=== PATIENT | female | born 1955 | race Caucasian/White ===

== ENCOUNTER → 2019-11-18 09:28 | Outpatient (CLI) | payer MEDICARE, SELFPAY ==
[2019-11-18 13:05] LABS: Thyroid Stim Hormone (TSH) 2.16 uIU/mL (0.358-3.74)
[2019-11-19 20:39] LABS: Anti-Thyroglobulin AB < 1.0 IU/mL (0.0-0.9); Thyroglobulin, Serum Qt. 6.9 ng/mL (1.5-38.5); Thyroid Peroxidase AB < 9 IU/mL (0-34)
== END ==
PROVIDERS: PCP Family Medicine; Referring Provider Otolaryngology; Visit Provider Otolaryngology
DX: E03.9 Hypothyroidism, unspecified (principal)
CPT/HCPCS: 36415; 84432; 84443; 86376; 86800

== ENCOUNTER → 2019-12-15 12:15 | Outpatient (CLI) | payer MEDICARE, SELFPAY ==
[2019-12-15 11:30] VITALS: BMI 26.6
[2019-12-15 13:00] LABS: Absolute Lymphocyte Count 1.86 X10^3/uL (0.83-4.51); Absolute Neutrophil Count 4.3 X10^3/uL (2.0-7.7); Basophil# 0.04 X10^3/uL; Basophil% 0.6 % (0-1); Eosinophil# 0.12 X10^3/uL; Eosinophils% 1.7 % (0-5); Hematocrit 46.3 % (37-47); Lymphocyte # 1.86 X10^3/ul (4.0); Mean Corp Hgb Conc 32.4 g/dL (32-36); Mean Corpuscular Hgb 32.3 pg (27.0-32.0); Mean Corpuscular Volume 99.6 fL (81-99); Mean Platelet Vol. 9.8 fl (6.2-12.0); Monocyte# 0.54 X10^3/uL; Monocyte% 7.8 % (0-10); NRBC Flagged by Analyzer 0 % (0-5); Neutrophil # 4.33 X10^3/uL (2.7-7.7); Neutrophil % 62.8 % (47-70); Platelet Count 283 K/mm3 (150-450); RBC Distribution Width CV 13.7 % (11.6-14.6); RBC Distribution Width SD 50.2 fl (35.1-43.9); Red Blood Count 4.65 M/mm3 (4.2-5.4); White Blood Count 6.9 K/mm3 (4.4-11.0)
[2019-12-15 13:39] LABS: Anion Gap 7 (5-15); BUN 15 mg/dL (7-18); BUN/Creat Ratio 20.5 RATIO (10-20); Calcium,Total 9.3 mg/dL (8.5-10.1); Chloride 105 mmol/L (98-107); Creatinine, Serum 0.73 mg/dL (0.55-1.02); EST Glomerular Filtration Rate 85 mL/min (>60); Est Glom Filt Rate - Afr Amer 103 mL/min (>60); Glucose 88 mg/dL (74-106); Magnesium 2.6 mg/dL (1.6-2.6); Potassium 3.9 mmol/L (3.5-5.1); Sodium Level 141 mmol/L (136-145); Thyroid Stim Hormone (TSH) 2.98 uIU/mL (0.358-3.74)
== END ==
PROVIDERS: PCP Family Medicine; Referring Provider Internal Medicine Cardiovascular Disease; Visit Provider Internal Medicine Cardiovascular Disease
DX: I49.9 Cardiac arrhythmia, unspecified (principal); R00.2 Palpitations
CPT/HCPCS: 36415; 80048; 83735; 84443; 85025

== ENCOUNTER → 2019-12-22 12:49 | Outpatient (CLI) | payer MEDICARE, SELFPAY ==
[2019-12-15 11:30] VITALS: BMI 26.6
--- NOTE | 2019-12-22 12:50 | ECHOCS_ITS ---
Reason For Study: Afib, Aflutter Procedure This was a 2D Doppler, Color Flow transthoracic echocardiogram. Contrast injection was performed. Exam performed in department. Left Ventricle Normal LV size. The estimated ejection fraction is 37 %. Stage 1 diastolic dysfunction. There is mild to moderate global hypokinesis of the left ventricle. Right Ventricle Normal RV size. Normal systolic function. Atria Normal left atrium. Normal right atrium. Bubble contrast study negative for right to left interatrial shunt. Mitral Valve Normal mitral valve. Tricuspid Valve Normal tricuspid valve. Aortic Valve Normal aortic valve. Trisinus/trileaflet aortic valve. Trivial eccentric aortic valve insufficiency. Pulmonic Valve Normal pulmonic valve. Great Vessels Normal aortic root. Pericardium/Pleural No pericardial effusion. Medication Diluted definity 4ml given slow IV push to enhance endocardial definition. MMode/2D Measurements & Calculations LVIDd: 4.5 cm IVSd: 0.90 cm Ao root diam: 2.8 cm LVIDs: 4.0 cm LVPWd: 0.73 cm RVDd: 3.1 cm FS: 12.1 % LAV(MOD-bp): 56.8 ml LVAd ap4: 28.3 cm2 SV(MOD-sp4): 40.2 ml LAV(MOD-bp) Indexed: 34.3 ml/m2 EDV(MOD-sp4): 88.2 ml LAV(MOD-sp2): 51.6 ml EDV(sp4-el): 89.8 ml LAV(MOD-sp4): 51.4 ml LVAs ap4: 18.4 cm2 ESV(MOD-sp4): 48.0 ml ESV(sp4-el): 45.1 ml EF(MOD-sp4): 45.5 % EF(sp4-el): 49.8 % SV(sp4-el): 44.7 ml LA A4 area: 20.0 cm2 LA dimension(2D): 3.8 cm RA A4 area: 15.7 cm2 Doppler Measurements & Calculations MV E max nelson: 37.7 cm/sec Lat Peak E' Nelson: 5.4 cm/sec Med Peak E' Nelson: 4.6 cm/sec MV A max nelson: 41.5 cm/sec E/E' lat: 7.0 E/E' med: 8.2 MV E/A: 0.91 Ao V2 max: 92.7 cm/sec LV V1 max: 72.1 cm/sec PA V2 max: 72.5 cm/sec Ao max P.4 mmHg LV V1 max P.1 mmHg Ao V2 mean: 72.6 cm/sec Ao mean P.2 mmHg Ao V2 VTI: 15.1 cm TR max nelson: 227.7 cm/sec TR max P.7 mmHg Interpretation Summary Normal LV size. The estimated ejection fraction is 37 %. Trivial eccentric aortic valve insufficiency. Stage 1 diastolic dysfunction. Contrast injection was performed. Ordering Physician: Kobi Ashby Referring Physician: Maverick Galloway Performed By: Marika Luna, CRISTINA, RVT
== END ==
PROVIDERS: PCP Family Medicine; Referring Provider Internal Medicine Cardiovascular Disease; Visit Provider Internal Medicine Cardiovascular Disease
DX: I49.9 Cardiac arrhythmia, unspecified (principal); I35.1 Nonrheumatic aortic (valve) insufficiency
CPT/HCPCS: 93225; 93226; 93306; Q9957; A4216; C8929

== ENCOUNTER → 2019-12-29 16:04 | Outpatient (CLI) | payer MEDICARE, SELFPAY ==
[2019-12-29 14:50] VITALS: BMI 26.3
--- NOTE | 2019-12-29 16:10 | RAD_ITS ---
STUDY: X-RAY CHEST REASON FOR EXAM: Female, 64 years old. PRE-OP CHEST X-RAY FOR PACEMAKER PLACEMENT. HX OF CHRONIC IRREGULAR HEART RATE AND HYPERTENSION. TECHNIQUE: Frontal and lateral views of the chest. COMPARISON: None. FINDINGS: The lungs are clear and expanded. There is no demonstrated pleural abnormality. Normal size heart. Normal mediastinum and odalys. Normal visualized pulmonary arteries. Normal visualized aortic arch and descending thoracic aorta. Normal visualized thoracic spine. Normal visualized ribs, clavicles, and shoulders. There is no demonstrated abnormality of the visualized soft tissue structures of the upper abdomen. RAD/Chest PA and Lateral IMPRESSION: Normal x-ray examination of the chest. Electronically Signed: Clarence Gama MD at 19:50 EDT , Service support ,
== END ==
PROVIDERS: PCP Family Medicine; Referring Provider Internal Medicine Cardiovascular Disease; Visit Provider Internal Medicine Cardiovascular Disease
DX: I45.89 Other specified conduction disorders (principal); I42.8 Other cardiomyopathies; I44.2 Atrioventricular block, complete
CPT/HCPCS: 71046

== ENCOUNTER 2020-01-24 14:14 | Observation (INO) | payer MEDICARE, SELFPAY ==
[2019-12-29 14:50] VITALS: BMI 26.3
[2019-12-29 16:27] LABS: Bacteria 0 SEEN /hpf (None Seen); Mucous, Urine 0 SEEN /hpf (<or=2+); Red Blood Cells-Urine 0 SEEN /hpf (0-5); Squamous Epithelial Cells - UA 0 SEEN /hpf (5-10); White Blood Cells 0 SEEN /hpf (0-5)
[2019-12-29 16:47] LABS: Color, Urine Yellow (Yellow); Glucose, Dipstick Normal (Normal); Ketone-Dipstick 5 mg/dl (Negative); Leukocyte Esterase-Dipstick 25 /ul (Negative); Nitrite-Dipstick Negative (Negative); Occult Blood-Urine Negative /ul (Negative); Protein-Dipstick Negative (Negative); Urine Bilirubin Dipstick Negative (Negative); Urine Clarity Clear (Clear); Urine Urobilinogen Normal (Normal)
[2019-12-29 16:54] LABS: Hematocrit 46.5 % (37-47); Hemoglobin 15.2 g/dL (12.0-15.0); Mean Corp Hgb Conc 32.7 g/dL (32-36); Mean Corpuscular Hgb 32.1 pg (27.0-32.0); Mean Corpuscular Volume 98.3 fL (81-99); Mean Platelet Vol. 10.1 fl (6.2-12.0); Platelet Count 279 K/mm3 (150-450); RBC Distribution Width CV 12.6 % (11.6-14.6); RBC Distribution Width SD 45.6 fl (35.1-43.9); Red Blood Count 4.73 M/mm3 (4.2-5.4); White Blood Count 9.5 K/mm3 (4.4-11.0)
[2019-12-29 17:11] LABS: Anion Gap 7 (5-15); BUN 11 mg/dL (7-18); Calcium,Total 9.3 mg/dL (8.5-10.1); Chloride 103 mmol/L (98-107); Creatinine, Serum 0.74 mg/dL (0.55-1.02); EST Glomerular Filtration Rate 84 mL/min (>60); Est Glom Filt Rate - Afr Amer 102 mL/min (>60); Glucose 87 mg/dL (74-106); Potassium 3.5 mmol/L (3.5-5.1); Sodium Level 136 mmol/L (136-145)
[2020-01-21 07:39] VITALS: BMI 26.3
[2020-01-24] VITALS (11 sets, daily range): BP systolic 91–140; BP diastolic 50–83; PULSE 63–72; RESP 16–18; TEMP 36.7–36.8; O2SAT 95–100
[2020-01-24] MEDS: Cefazolin 2 GM in 0.9% Normal Saline 100 ML IV (12:30)
--- NOTE | 2020-01-24 14:11 | CL.IE_ITS ---
Patient: RAEGAN GARCÍA Study Date: 01/24/2020 Performing: Kobi Ashby MD : 1955 Age: 64 Gender: female PROCEDURES PERFORMED [id number] PACER INSERT+DUAL LEADS INDICATIONS Atrioventricular (AV) block PROCEDURE DETAILS The patient was brought to the Catheterization Lab in the postabsorptive nonsedated state. [facility] was obtained prior to the procedure. Local anesthetic was given subcutaneously to the le ft subclavian region with Lidocaine 2%. Access was achieved and a guidewire was advanced into the lef t subclavian vein. Incision was made to the left subclavicular area. A peel-away sheath was inserted into the left subclavian vein. PPM ventricular lead was inserted / positioned to right ventricular ap ex. PPM ventricular lead testing performed. PPM ventricular lead testing performed. A peel-away sheat h was inserted into the left subclavian vein. PPM atrial lead was inserted / positioned to the right atrial appendage. PPM atrial lead testing performed. The Atrial lead sutured in place with 2-0 Silk. The Ventricular PM lead sutured in place with 2-0 Silk. Device pocket was irrigated with antibiotic. PPM generator was attached to the lead(s) and inserted into the pocket. PPM generator was then interrogated by the senior net programmer. Subcutaneous closure was completed with 3-0 Vicryl. Skin closure was completed with 4-0 Vicryl. Steri-strips applied to Lt chest area. The patient tolerated the pro cedure well. Estimated Blood Loss: < 10 mls IMPLANTED / EX-PLANTED DEVICES IMPLANTED DEVICE(S): PPM Atrial lead - Electronics Test Engineer: [employer], Model # 7840 , Serial # [id number] PPM Ventricular lead - Electronics Test Engineer: [employer], Model # 7841 , Serial # [id number] PPM Generator - Electronics Test Engineer: Issue, Model # [employer] MRI DR Pacemaker L111 , Serial # [id number] DEVICE PARAMETERS ATRIAL LEAD PARAMETERS: P wave- 2.1 (mV) Current- 2.1 (mA) threshold- 1.2 (V) impedence- 597 (OHMS) VENTRICULAR LEAD PARAMETERS: R wave- 11.8 (mV) Current- 0.8 (mA) threshold- 0.5 (V) impedence- 710 (OHMS) DEVICE PARAMETERS: Mode- DDD Lower rate- 60 Upper rate- 130 CONCLUSIONS / RECOMMENDATIONS Device Conclusions: Successful implantation of a dual chamber pacemaker Device Recommendations: Follow up with Primary Care Physician PROCEDURE MEDICATIONS Fentanyl 50 mcg IV Versed 1 mg IV Versed 1 mg IV Fentanyl 25 mcg IV Versed 1 mg IV Fentanyl 25 mcg IV Fentanyl 25 mcg IV Antibiotic given in appropriate timeframe. Ancef 2 Gm IV @ 01/24/2020 12:33:14 Signed By Kobi Ashby MD On 01/24/2020 14:11:24 Kobi Ashby MD
[2020-01-24] MEDS: 0.9% Normal Saline 1,000 ML 100 ML IV (19:13)
[2020-01-25 00:51] VITALS: PULSE 60
[2020-01-25 03:21] VITALS: BP 145/70; PULSE 62; RESP 17; TEMP 36.5; O2SAT 100
--- NOTE | 2020-01-25 05:55 | RAD_ITS ---
STUDY: X-RAY CHEST REASON FOR EXAM: Female, 64 years old. Post permanent ICD/Pacemaker TECHNIQUE: Frontal and lateral views of the chest. COMPARISON: 12/29/2019. FINDINGS: The patient is status post atrioventricular pacemaker placement via left subclavian access. Wires are grossly intact. There is mild left basilar atelectasis. There are no confluent pulmonary infiltrates. There is no demonstrated pleural abnormality. There is borderline cardiomegaly. Normal mediastinum and odalys. Normal visualized aortic arch and descending thoracic aorta. There are no demonstrated acute fractures or destructive bone lesions. There is no demonstrated abnormality of the visualized soft tissue structures of the upper abdomen. RAD/Chest PA and Lateral IMPRESSION: Atrioventricular pacemaker. Borderline heart size. No evidence for acute cardiopulmonary pathology. Electronically Signed: Steven Baron MD at 5:55 EDT , Service support ,
[2020-01-25] MEDS: Levothyroxine 25 MCG TABLET PO (06:21)
[2020-01-25] MEDS: 0.9% Normal Saline 1,000 ML 100 ML IV (06:24)
[2020-01-25 07:36] VITALS: PULSE 60
--- NOTE | 2020-01-25 07:43 | PN.CARD_ITS ---
Subjectve: Patient seen and evaluated. Appears to be doing much better this morning. Objective: Vital Signs Temp Pulse Resp BP Pulse Ox 97.7 F L 62 17 145/70 H 100 01/25/20 03:21 01/25/20 03:21 01/25/20 03:21 01/25/20 03:21 01/25/20 03:21 Oxygen Delivery Method Room Air Weight: 144 lb Body Mass Index (BMI) 26.3 Intake and Output for Last 24 Hours 01/23/20 01/24/20 01/25/20 23:59 23:59 23:59 Intake Total 590 / 590 1120 / 1120 Output Total 650 / 650 Balance 590 / 590 470 / 470 General: Awake, Alert, Oriented x 3 HEENT: PERRL, EOMI, Sclera Non Icteric Neck: Supple, Good ROM, No Lymph Node Enlargement Lungs: Clear to auscultation Cardiovascular: Regular Rhythm, Normal S1, Normal S2, No Murmurs, No Rubs, No Gallops Vascular: No Carotid Bruits, Normal Femoral Pulses, Normal Radial Pulses, Normal Dorsalis Pedal Pulse, Normal Posterior Tibial Pulses Abdomen: Bowel Sounds Present, Soft, Non Tender, No HSM, No Organomegaly Extremities: No Cyanosis, No Clubbing, No edema Musculoskeletal: No Erythema Skin: No Rashes Lymphatic: No Lymph Node Enlargement Neurological: No Focal Motor or Sensory Deficit Psych/Mental Status: Appropriate Rhythm: EKG: ECHO: Stress Test: Cardiac Cath: PCI: CT Surgery: Holter monitor: EPS: PPM: CXR: Chest CT Scan: Medical Necessity - Tobacco Use Smoking Status: Never smoker Assessment/Plan 1. 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 * Chest x-ray does not demonstrate any significant abnormalities. * Pacer check is pending at this time. However if noted to be normal will discharge for outpatient follow-up. * * Thank you for allowing me to participate in the care of your patient. Please don't hesitate to call if any issues arise.
[2020-01-25 08:05] VITALS: PULSE 60
[2020-01-25 08:08] VITALS: BP 123/89; PULSE 60; RESP 12; TEMP 36.9; O2SAT 96
[2020-01-25] MEDS: Losartan Potassium 25 MG Tablet PO (09:42)
--- NOTE | 2020-01-25 10:19 | DCINST_ITS ---
Discharge Diet: No Restrictions Discharge Activity: May Not Drive Call your doctor if your incision/area has: Continuous Slow Oozing, Sudden Increased Bleeding, Increased Pain/ Swelling, Increased Redness, Foul Smelling Discharge, Swelling at the incision site Call your doctor if you observe: Fever of 101 or Higher, Shortness of breath, Dizziness, Fainting spells, Swelling in the ankles, Chest pain, Prolonged hiccoughing, Increased palpitations (irregular heartbeat) Suture Line Care: Avoid Pulling/Pushing, Avoid Pinching/Bending Cleanse incision/area with: Do not get Incision Wet, Keep Dressing Clean & Dry Additional Dressing/Incision Instructions:: When dressing is removed, wash and dry incision. Keep covered with a light bandage if it is rubbing against your clothing. Do not cover the incision with an airtight bandage. Change the bandage daily. Do not remove steri strips. The strips will fall off on their own. Additional Instructions: Signs and Symptoms to Report to Your Doctor at Once - call your doctor's office or Doctor's Registry ([phone]) Call 911 or go to the nearest Emergency Department if you feel you need urgent care. *Infection (fever, increased redness or swelling at the incision site, drainage from the incision increased pain at the pacemaker site) *Shortness of breath *Dizziness *Fainting spells *Swelling in the ankles *Chest pain *Prolonged hiccoughing *Increased palpitaitons (irregular heartbeat) Medications: Take your pain medication as directed. Refer to your discharge instruction sheet for a list of medications you are to take. Allergies/Adverse Reactions: Allergies lisinopril Adverse Reaction (Verified 01/12/20 11:22) cough Medications to take at Discharge levothyroxine 25 mcg capsule 25 mcg PO DAILY 12/13/19 losartan 25 mg tablet 25 mg PO DAILY #30 tab 01/12/20 Primary Care Physician: Maverick Galloway MD [Primary Care Provider] - Test Results: Test results from this visit will be discussed in further detail at your follow- up appointment, if applicable. Please Follow Up With: [facility] 01/31/20 @ 1 PM Proposed Discharge Date: 01/25/20
[2020-01-25 10:20] VITALS: BP 123/89; PULSE 60; RESP 12; TEMP 36.9; O2SAT 96
== END 2020-01-25 10:20 | disposition home or self-care (01) ==
LOC: PCU 14:57
PROVIDERS: Admitting Provider Internal Medicine Cardiovascular Disease; PCP Family Medicine; Referring Provider Internal Medicine Cardiovascular Disease; Visit Provider Internal Medicine Cardiovascular Disease
DX: I45.89 Other specified conduction disorders (principal); I42.8 Other cardiomyopathies; R03.0 Elevated blood-pressure reading, without diagnosis of hypertension; E03.9 Hypothyroidism, unspecified; I44.2 Atrioventricular block, complete; Z86.73 Personal history of transient ischemic attack (TIA), and cerebral infarction without residual deficits; E78.5 Hyperlipidemia, unspecified; K58.9 Irritable bowel syndrome, unspecified; Z23 Encounter for immunization; Z79.899 Other long term (current) drug therapy
CPT/HCPCS: 33208; 36415; 71046; 80048; 81001; 85027; 96360; 96361; 99152; 99153; 99218; G0008; J7030; J7040; J7050; 90686; C1725; C1874; C1887; C1894; G0378; G0379

== ENCOUNTER → 2020-06-30 09:43 | Outpatient (CLI) | payer MEDICARE, SELFPAY ==
[2020-04-04 10:01] VITALS: BMI 25.4
--- NOTE | 2020-06-30 09:47 | ECHOD_ITS ---
Reason For Study: ARRHYTHMIA Procedure This was a 2D Doppler, Color Flow transthoracic echocardiogram. Exam performed with PTsitting upright due to sciatica pain. Exam performed in department. Left Ventricle Normal LV size. The estimated ejection fraction is 45 %. Stage 2 diastolic dysfunction. No regional wall motion abnormalities noted. Right Ventricle Normal RV size. ICD or pacer leads identified within the right ventricle. Normal systolic function. Atria The left atrium is mildly enlarged. Normal right atrium. Mitral Valve Normal mitral valve. Tricuspid Valve Normal tricuspid valve. Mild (1+) tricuspid valve insufficiency. Pulmonary artery systolic pressure is 36 mmHg. Aortic Valve Normal aortic valve. Trisinus/trileaflet aortic valve. Pulmonic Valve Normal pulmonic valve. Great Vessels Normal aortic root. The pulmonary artery is normal size. Normal inferior vena cava. Pericardium/Pleural No pericardial effusion. MMode/2D Measurements & Calculations LVIDd: 4.9 cm IVSd: 0.73 cm Ao root diam: 3.0 cm LVIDs: 3.8 cm LVPWd: 0.81 cm RVDd: 4.0 cm FS: 22.6 % LAV(MOD-bp): 86.7 ml LVAd ap4: 27.0 cm2 SV(MOD-sp4): 34.4 ml LAV(MOD-bp) Indexed: 52.9 ml/m2 EDV(MOD-sp4): 74.5 ml LAV(MOD-sp2): 84.2 ml EDV(sp4-el): 78.5 ml LAV(MOD-sp4): 84.5 ml LVAs ap4: 18.3 cm2 ESV(MOD-sp4): 40.0 ml ESV(sp4-el): 41.7 ml EF(MOD-sp4): 46.2 % EF(sp4-el): 46.9 % SV(sp4-el): 36.8 ml LA A4 area: 25.2 cm2 LA dimension(2D): 2.9 cm RA A4 area: 16.7 cm2 Time Measurements MV dec time: 0.18 sec Doppler Measurements & Calculations MV E max nelson: 68.6 cm/sec Lat Peak E' Nelson: 13.7 cm/sec Med Peak E' Nelson: 7.6 cm/sec MV A max nelson: 44.9 cm/sec E/E' lat: 5.0 E/E' med: 9.1 MV E/A: 1.5 Ao V2 max: 112.3 cm/sec LV V1 max: 82.5 cm/sec PA V2 max: 100.7 cm/sec Ao max P.0 mmHg LV V1 max P.7 mmHg TR max nelson: 285.6 cm/sec TR max P.9 mmHg ECHO/Echo Complete Interpretation Summary Normal LV size. The estimated ejection fraction is 45 %. No regional wall motion abnormalities noted. The left atrium is mildly enlarged. Stage 2 diastolic dysfunction. Pulmonary artery systolic pressure is 36 mmHg. Compared to previous study, the left ventricular systolic function has improved .. Ordering Physician: Kobi Ashby Referring Physician: Maverick Galloway Performed By: Marissa Salcido RDCS, RVT
== END ==
PROVIDERS: PCP Family Medicine; Referring Provider Internal Medicine Cardiovascular Disease; Visit Provider Internal Medicine Cardiovascular Disease
DX: I44.2 Atrioventricular block, complete (principal)
CPT/HCPCS: 93306

== ENCOUNTER → 2020-07-10 06:02 | Outpatient (CLI) | payer MEDICARE, SELFPAY ==
[2020-07-03 14:07] VITALS: BMI 26.3
--- NOTE | 2020-07-10 13:33 | STRESSREP_ITS ---
Stress Test Report Pharmacologic myocardial perfusion stress test. 65-year-old lady with a history of nonischemic cardiomyopathy. Medications losartan, carvedilol. Stress protocol: Resting EKG demonstrates normal sinus rhythm with a rate of 85 bpm and left bundle branch block is noted resting blood pressure is 152/92 mmHg. 0.4 mg of regadenoson was infused per usual protocol followed by rapid intravenous saline flush injection continuous EKG monitoring was performed. The maximum heart rate attained was 113 bpm which was 73% of max impacted heart rate the maximum workload was 1 metabolic equivalent. At rest there were no ST or T wave changes noted to suggest abnormal flow reserve and at peak infusion nonspecific changes were noted which were consistent with left bundle branch block and pacing patent. The peak blood pressure 152/92 mmHg. Myocardial perfusion protocol. 11.4 mCi of technetium 99m sestamibi was injected at rest. 0.4 mg of re gadenoson was infused per usual protocol. At peak infusion 32.6 mCi of technetium 99m sestamibi was injected stress and rest images were reconstructed and compared in the short axis vertical long horizontal long axis. Gated images were also obtained Perfusion SPECT analysis: Review of the stress images demonstrate uniform uptake of tracer noted in all areas of the myocardium. The resting images demonstrate a similar pattern. No obvious areas of reversibility are noted to suggest ischemia. There is GI attenuation artifact noted. No obvious ischemia is noted and no previous infarct is present. Gated SPECT analysis: The gated ejection fraction is 34%. Apical pacing activity present. Conclusion: Cardiomyopathy present. No ischemia noted.
== END ==
PROVIDERS: PCP Family Medicine; Referring Provider Physician Assistant Medical; Visit Provider Physician Assistant Medical
DX: I42.9 Cardiomyopathy, unspecified (principal); I51.89 Other ill-defined heart diseases
CPT/HCPCS: 78452; 93017; A9500; A4216; J2785

== ENCOUNTER → 2021-02-12 13:49 | Outpatient (CLI) | payer MEDICARE, SELFPAY ==
--- NOTE | 2021-02-12 13:56 | ECHOD_ITS ---
Version 2 Reason For Study: Afib/Flutter Procedure This was a 2D Doppler, Color Flow transthoracic echocardiogram. Echo done with patient supine due to severe sciatica pain. Respiration dependent, best apical images to assess LVF taken immediately before subcostals. Exam performed in department. Left Ventricle Normal LV size. Left ventricular systolic function is normal. The estimated ejection fraction is 53 %. Unable to assess diastolic dysfunction due to arrhythmia. No regional wall motion abnormalities noted. Right Ventricle Normal RV size. ICD or pacer leads identified within the right ventricle. Normal systolic function. Atria The left atrium is mildly enlarged. Normal right atrium. Mitral Valve Normal mitral valve. Tricuspid Valve Normal tricuspid valve. Mild (1+) tricuspid valve insufficiency. Pulmonary artery systolic pressure is 37 mmHg. Pulmonic Valve Normal pulmonic valve. Great Vessels Normal aortic root. The pulmonary artery is normal size. Normal inferior vena cava. Pericardium/Pleural No pericardial effusion. MMode/2D Measurements & Calculations LVIDd: 4.6 cm IVSd: 0.87 cm LA dimension: 3.6 cm LVIDs: 3.4 cm LVPWd: 0.80 cm FS: 25.5 % LAV(MOD-bp): 76.1 ml LA A4 area: 23.2 cm2 RA A4 area: 15.9 cm2 LAV(MOD-bp) Indexed: 45.7 ml/m2 LAV(MOD-sp2): 62.6 ml LAV(MOD-sp4): 73.9 ml Doppler Measurements & Calculations MV E max evita: 82.3 cm/sec Ao V2 max: 107.8 cm/sec LV V1 max: 63.4 cm/sec Ao max P.7 mmHg LV V1 max P.6 mmHg PA V2 max: 92.5 cm/sec TR max evita: 288.5 cm/sec TR max P.3 mmHg ECHO/Echo Complete Interpretation Summary Normal LV size. Left ventricular systolic function is normal. The estimated ejection fraction is 53 %. Unable to assess diastolic dysfunction due to arrhythmia. Pulmonary artery systolic pressure is 37 mmHg. Ordering Physician: Kobi Ashby Referring Physician: Maverick Galloway Performed By: Jesse Fuller RCS
== END ==
PROVIDERS: PCP Family Medicine; Referring Provider Internal Medicine Cardiovascular Disease; Visit Provider Internal Medicine Cardiovascular Disease
DX: I48.91 Unspecified atrial fibrillation (principal); Z86.73 Personal history of transient ischemic attack (TIA), and cerebral infarction without residual deficits
CPT/HCPCS: 93306

== ENCOUNTER 2021-06-07 08:11 | Outpatient (CLI) | payer MEDICARE, SELFPAY ==
[2021-06-07 08:53] LABS: Absolute Lymphocyte Count 2.45 X10^3/uL (0.83-4.51); Absolute Neutrophil Count 3.2 X10^3/uL (2.0-7.7); Basophil# 0.07 X10^3/uL; Basophil% 1.1 % (0-1); Eosinophil# 0.15 X10^3/uL; Eosinophils% 2.4 % (0-5); Hematocrit 42.1 % (37-47); Hemoglobin 13.5 g/dL (12.0-15.0); Lymphocyte # 2.45 X10^3/ul (0.83-4.51); Lymphocyte % 38.4 % (19-41); Mean Corp Hgb Conc 32.1 g/dL (32-36); Mean Corpuscular Hgb 30.9 pg (27.0-32.0); Mean Corpuscular Volume 96.3 fL (81-99); Mean Platelet Vol. 9.2 fl (6.2-12.0); Monocyte# 0.47 X10^3/uL; Monocyte% 7.4 % (0-10); NRBC Flagged by Analyzer 0 % (0-5); Neutrophil # 3.23 X10^3/uL (2.7-7.7); Neutrophil % 50.5 % (47-70); Platelet Count 264 K/mm3 (150-450); RBC Distribution Width CV 14.1 % (11.6-14.6); RBC Distribution Width SD 50.6 fl (35.1-43.9); Red Blood Count 4.37 M/mm3 (4.2-5.4); White Blood Count 6.4 K/mm3 (4.4-11.0)
[2021-06-07 09:29] LABS: AST(SGOT) 14 U/L (15-37); Alanine Aminotransfer ALT/SGPT 19 U/L (13-56); Albumin, Serum 4.2 g/dL (3.2-5.0); Alkaline Phosphatase 60 U/L (45-117); Anion Gap 3 (5-15); BUN 16 mg/dL (7-18); BUN/Creat Ratio 19.5 RATIO (10-20); Bilirubin, Direct 0.28 mg/dL (0.00-0.30); Calcium,Total 9.1 mg/dL (8.5-10.1); Chloride 101 mmol/L (98-107); Cholesterol 207 mg/dL (200); Creatinine, Serum 0.82 mg/dL (0.55-1.02); EST Glomerular Filtration Rate 74 mL/min (>60); Est Glom Filt Rate - Afr Amer 89 mL/min (>60); Globulin 3.7 g/dL (2.2-4.2); Glucose 87 mg/dL (74-106); High Density Lipoprotein 57 mg/dL; Magnesium 2.3 mg/dL (1.6-2.6); Potassium 4.2 mmol/L (3.5-5.1); Protein, Total 7.9 g/dL (6.4-8.2); Sodium Level 136 mmol/L (136-145); Thyroid Stim Hormone (TSH) 2.87 uIU/mL (0.358-3.74); Triglycerides 59 mg/dL; Very Low Density Lipoprotein 12 mg/dL (5-40)
== END 2021-06-07 23:59 | disposition home or self-care (01) ==
LOC: LAB 08:13
PROVIDERS: PCP Family Medicine; Referring Provider Internal Medicine Cardiovascular Disease; Visit Provider Internal Medicine Cardiovascular Disease
DX: I48.92 Unspecified atrial flutter (principal); I42.8 Other cardiomyopathies; I48.0 Paroxysmal atrial fibrillation; I44.2 Atrioventricular block, complete; I45.89 Other specified conduction disorders; I10 Essential (primary) hypertension; E78.5 Hyperlipidemia, unspecified; E78.00 Pure hypercholesterolemia, unspecified; Z86.73 Personal history of transient ischemic attack (TIA), and cerebral infarction without residual deficits; Z95.0 Presence of cardiac pacemaker
CPT/HCPCS: 36415; 80048; 80061; 80076; 83735; 84443; 85025

== ENCOUNTER → 2024-06-23 | Outpatient (CLI) | payer MEDICARE, SELFPAY ==
[2024-06-23 13:52] LABS: Hematocrit 40.1 % (37-47); Hemoglobin 12.9 g/dL (12.0-15.0); Mean Corp Hgb Conc 32.2 g/dL (32-36); Mean Corpuscular Hgb 30.6 pg (27.0-32.0); Mean Corpuscular Volume 95.2 fL (81-99); Mean Platelet Vol. 9.6 fl (6.2-12.0); Platelet Count 288 K/mm3 (150-450); RBC Distribution Width CV 14.6 % (11.6-14.6); RBC Distribution Width SD 51.6 fl (35.1-43.9); Red Blood Count 4.21 M/mm3 (4.2-5.4); White Blood Count 6.3 K/mm3 (4.4-11.0)
[2024-06-23 14:51] LABS: Anion Gap 10 (5-15); BUN 22 mg/dL (4-19); BUN/Creat Ratio 33.4 RATIO (10-20); Calcium,Total 8.9 mg/dL (7.6-11.0); Carbon Dioxide 28.4 mmol/L (21.0-32.0); Chloride 103 mmol/L (98-108); Creatinine, Serum 0.66 mg/dL (0.70-1.20); EST Glomerular Filtration Rate 94 (>60); Glucose 88 mg/dL (70-99); Magnesium 2.3 mg/dL (1.5-2.2); Potassium 4.7 mmol/L (3.3-5.1); Sodium Level 141 mmol/L (133-145)
== END | disposition home or self-care (01) ==
LOC: LAB 12:05
PROVIDERS: Referring Provider Physician Assistant Medical; Visit Provider Physician Assistant Medical
DX: R00.2 Palpitations (principal); I48.0 Paroxysmal atrial fibrillation; I42.8 Other cardiomyopathies; I49.3 Ventricular premature depolarization
CPT/HCPCS: 36415; 80048; 83735; 84443; 85027

== ENCOUNTER → 2024-06-28 | Outpatient (CLI) | payer MEDICARE, SELFPAY | END | disposition home or self-care (01) | LOC: PSN 06:54 | PROVIDERS: Referring Provider Physician Assistant Medical; Visit Provider Physician Assistant Medical | DX: I48.0 Paroxysmal atrial fibrillation (principal); R00.2 Palpitations | CPT/HCPCS: 93225; 93226 ==

== ENCOUNTER → 2024-07-09 | Outpatient (CLI) | payer MEDICARE, SELFPAY ==
[2024-07-09 17:48] LABS: Magnesium 2.4 mg/dL (1.5-2.2)
[2024-07-09 18:03] LABS: Anion Gap 12 (5-15); BUN 23 mg/dL (4-19); BUN/Creat Ratio 28.9 RATIO (10-20); Calcium,Total 9.3 mg/dL (7.6-11.0); Carbon Dioxide 26.7 mmol/L (21.0-32.0); Chloride 100 mmol/L (98-108); EST Glomerular Filtration Rate 80 (>60); Glucose 89 mg/dL (70-99); Potassium 4.4 mmol/L (3.3-5.1); Sodium Level 139 mmol/L (133-145)
== END | disposition home or self-care (01) ==
LOC: LAB 16:04
PROVIDERS: Referring Provider Physician Assistant Medical; Visit Provider Physician Assistant Medical
DX: I49.3 Ventricular premature depolarization (principal)
CPT/HCPCS: 36415; 80048; 83735